=== PATIENT | female | born 1980 | race Caucasian/White ===

== ENCOUNTER → 2017-06-23 11:56 | Outpatient (CLI) | payer BC, SELFPAY ==
[2017-06-23 16:05] LABS: Free T3 3.4 pg/mL (2.18-3.98); T4 Free Direct 1.07 ng/dL (0.76-1.46); Thyroid Stim Hormone (TSH) 2.31 uIU/mL (0.358-3.74)
== END ==
PROVIDERS: Visit Provider Obstetrics & Gynecology
DX: O99.280 Endocrine, nutritional and metabolic diseases complicating pregnancy, unspecified trimester (principal); E03.9 Hypothyroidism, unspecified; Z3A.00 Weeks of gestation of pregnancy not specified
CPT/HCPCS: 36415; 84439; 84443; 84481

== ENCOUNTER → 2017-10-07 13:13 | Outpatient (CLI) | payer BC, SELFPAY ==
[2017-10-07 15:51] LABS: Hematocrit 34.4 % (37-47); Hemoglobin 11.4 g/dl (12.0-15.0); Mean Corp Hgb Conc 33.1 g/gl (32-36); Mean Corpuscular Volume 93.5 fL (81-99); Mean Platelet Vol. 9.9 fl (6.2-12.0); Platelet Count 371 K/mm3 (150-450); RBC Distribution Width CV 13.3 % (11.6-14.6); RBC Distribution Width SD 43.9 fl (35.1-43.9); Red Blood Count 3.68 M/mm3 (4.2-5.4); White Blood Count 7.3 K/mm3 (4.4-11.0)
[2017-10-07 15:52] LABS: Scan Indicated on CBC? Y/N NO
[2017-10-07 15:57] LABS: Glucose Challenge Gest 1H 50g 135 mg/dL (70-140)
== END ==
PROVIDERS: Visit Provider Obstetrics & Gynecology
DX: Z34.83 Encounter for supervision of other normal pregnancy, third trimester (principal)
CPT/HCPCS: 36415; 82950; 85027

== ENCOUNTER → 2017-11-17 13:33 | Outpatient (CLI) | payer BC, SELFPAY ==
[2017-11-17 17:05] LABS: Group B Strep DNA By PCR Negative (Negative); Internal Control PASS; Probe Check PASS; Specimen Processing Control PASS
== END ==
LOC: LABSPEC 13:34
PROVIDERS: Visit Provider Obstetrics & Gynecology
DX: Z36.85 Encounter for antenatal screening for Streptococcus B (principal)
CPT/HCPCS: 87081; 87653

== ENCOUNTER 2017-12-11 14:25 | Inpatient (IN) | payer BC, SELFPAY ==
[2017-12-11 14:45] VITALS: BMI 39.9
[2017-12-11] MEDS: Lactated Ringers 1,000 ML 100 ML IV (14:45)
[2017-12-11 15:18] LABS: Prothrombin Time (Protime)PT. 12.9 SECONDS (11.7-14.9)
[2017-12-11 15:19] LABS: Partial Thromboplast Time 23.5 Seconds (24.1-36.2)
[2017-12-11 15:20] LABS: Hematocrit 35.9 % (37-47); Mean Corp Hgb Conc 33.4 g/gl (32-36); Mean Corpuscular Hgb 30.8 pg (27.0-32.0); Mean Corpuscular Volume 92.1 fL (81-99); Mean Platelet Vol. 10.1 fl (6.2-12.0); Platelet Count 374 K/mm3 (150-450); RBC Distribution Width CV 13.8 % (11.6-14.6); RBC Distribution Width SD 45.7 fl (35.1-43.9); White Blood Count 8.4 K/mm3 (4.4-11.0)
[2017-12-11 15:21] LABS: AST(SGOT) 21 U/L (15-37); Alanine Aminotransfer ALT/SGPT 19 U/L (13-56); Creatinine, Serum 0.54 mg/dL (0.55-1.02); EST Glomerular Filtration Rate 133 mL/min (>60); Est Glom Filt Rate - Afr Amer 161 mL/min (>60); Estimated Creatinine Clearance 130.94 ml/min; Uric Acid 3.5 mg/dL (2.6-6.0)
[2017-12-11 15:22] LABS: Scan Indicated on CBC? Y/N NO
[2017-12-11] MEDS: Oxytocin 30 units/NS 500 ml 30 UNITS/500 ML IV.SOLN IV (15:57)
[2017-12-11 16:42] LABS: Protein, Urine (Random) 12.1 mg/dL (<11.9); Protein:Creat Ratio 126 mg/g CRE (0-200)
--- NOTE | 2017-12-11 18:44 | PCM.PN.BLA ---
Progress Note LABOR PROGRESS NOTE No complaints. Feels mild contractions on pitocin. AVSS GEN - NAD SVE - deferred FHR 120, moderate variability, + accelerations, no decelerations TOCO 2-3/10 min A/P: 37yo G1 @ 38 5/7wga with IUGR, abnormal Dopplers and h/o cHTN. -Cat I FHR -Continue COUNTER CUTTER and if negative will proceed with induction of labor - status overall reassuring at this time -CLD
[2017-12-11] MEDS: 0.9% Normal Saline 100 ML IV.SOLN. INTRA-UTER (18:49)
--- NOTE | 2017-12-11 20:45 | PCM.PN.BLA ---
Progress Note LABOR PROGRESS NOTE Comfortable, not feeling UCs. 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 Afeb Pitocin at 8 mIU/min EFM 120-130s intermittent tracing Category I UCs noted, irregular CX: unable to reach, then with pt sitting on hands 1 cm max. firm ant posterior. Unable to place herndon bulb by blind insertion with stylet assist. Speculum placed and sidewalls of vagina convergent. Able to visualize cervix, but unable to place herndon bulb A/P: 39 wk induction for chronic HTN. Elevated Dopplers, SGA. Very unfavorable cervix. Stop pitocin. start Cytotec induction. Possible pitocin / herndon bulb or AROM as able. Watch progress, tolerance of labor.
--- NOTE | 2017-12-11 20:50 | PN_ITS ---
Progress Note LABOR PROGRESS NOTE Comfortable, not feeling UCs. 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 Afeb Pitocin at 8 mIU/min EFM 120-130s intermittent tracing Category I UCs noted, irregular CX: unable to reach, then with pt sitting on hands 1 cm max. firm ant posterior. Unable to place herndon bulb by blind insertion with stylet assist. Speculum placed and sidewalls of vagina convergent. Able to visualize cervix, but unable to place herndon bulb A/P: 39 wk induction for chronic HTN. Elevated Dopplers, SGA. Very unfavorable cervix. Stop pitocin. start Cytotec induction. Possible pitocin / herndon bulb or AROM as able. Watch progress, tolerance of labor.
[2017-12-11] MEDS: Labetalol 200 MG Tablet PO (21:49)
[2017-12-11] MEDS: miSOPROStol 25 MCG TABLET PO (21:49)
[2017-12-12] VITALS (12 sets, daily range): BP systolic 99–138; BP diastolic 60–77; PULSE 88–102; RESP 16–18; TEMP 36.3–37.3; O2SAT 93–97
[2017-12-12] MEDS: miSOPROStol 25 MCG TABLET PO ×3 (02:10→10:00)
[2017-12-12] MEDS: Levothyroxine 50 MCG Tablet PO (06:09)
[2017-12-12] MEDS: Sertraline 100 MG Tablet PO (10:00)
[2017-12-12] MEDS: Labetalol 200 MG Tablet PO ×2 (10:00→21:44)
[2017-12-12] MEDS: Lactated Ringers 1,000 ML 50 ML IV (13:45)
--- NOTE | 2017-12-12 15:55 | PCM.PN.BLA ---
Progress Note LABOR PROGRESS NOTE Rachel is comfortable with her epidural. No complaints. Denies headache, vision changes. AVSS GEN - NAD, AAO x 3 TOCO - 0-1/10 min - difficulty tracing contractions FHR - 110 with minimal variability with decelerations - unclear if early vs. late SVE 4.5/80/-2 37yo G1 at 38 6/7wga - IOL for cHTN with IUGR, abnormal Dopplers and oligohydramnios, now in active labor, Cat II FHR -h/o cHTN - no si/sx of worsening or preeclampsia -Amniotomy performed with clear fluid and ISE, IUPC placed. Prolonged deceleration subsequently occured to 60s with recovery to baseline with moderate variability
[2017-12-12] MEDS: Oxytocin 30 units/NS 500 ml 30 UNITS/500 ML IV.SOLN 167 UNITS IV (16:55)
[2017-12-12] MEDS: Lactated Ringers 1,000 ML 100 ML IV (17:55)
--- NOTE | 2017-12-12 18:10 | PCM.PN.BLA ---
Progress Note SUMMARY OF EVENTS Called to bedside for heart rate decelerations. On my arrival, patient in hands and knees with oxygen mask on. TOCO 3/10 min wiht MVU 40 and baseline 110 with moderate variability and prolonged and variable decelerations with contractions. I reviewed with patient and her findings and my concern for cord compression at this time and recommended amnioinfusion. Patient was agreeable. Amnioinfusion 300mL NS infusion began. FHR remained Category II with lessor severity of decelerations with subsequent contractions. Reviewed with patient that if infant did not respond appropriately to resuscitative measures would proceed with section as anticipate lessor reserve to tolerate labor given evidence of uteroplacental insufficiency. Reviewed section, how performed and surgical risks including pain, bleeding or hemorrhage, infection including UTI/endometritis/abscess/sepsis, urinary or bowel injury, scarring, need for further surgery. Patient and reported understanding. Discussed anticipated labor course and I reviewed at that I this time I feel it appropriate to continue in labor, however, I cannot guarantee that my recommendations will change as the status may change quickly. I offered section at this time as an alternative. Patient elected to continue in labor. Will continue in labor and reassess in 20-30 minutes.
--- NOTE | 2017-12-12 18:43 | PLAC_PTH ---
PATIENT: IVETT BARAHONA LOC: [facility] U#:[id number] AGE/SX: 37/F ROOM: WP004 RE12/11/[address]: Dr. Natali Pendleton MD : 1980 BED: 1 DIS: 12/15/2017 SPEC #: [id number] RECD: 12/12/17 21:15 STATUS: ELANA PHILLIP #: [id number] RYLEE: 12/12/17 18:[address]: Natali Dominguez DEPT: SURGICAL PATHOLOGY RECD BY: Marni Simon ENTERED: 12/16/17 08:48 SP TYPE: PLACENTA OTHR DR: Betty Rodríguez DO Tissues: A - Placenta, NOS B - Fallopian tube Procedures: Surgery Specimen Level II Surgery Specimen Level V HEADER OPERATION: Primary section; tubal ligation PRE-OP DIAGNOSIS: IUGR, abnormal umbilical Doppler?s, infant facies concerning for trisomy 21 TISSUE SUBMITTED: A. Placenta, B. Fallopian tube, blue stitch in left tube MICROSCOPIC DIAGNOSIS A. Jimenez placenta (416 gm): Umbilical cord ? trivascular with no inflammation. Placental membranes ? minimal decidual chronic inflammation. Placental disc ? increased intraparenchymal fibrin plaques, Arelis-Felix change. B. Right and left fallopian tubes, bilateral partial salpingectomies: Complete cross-sections of fallopian tubes with no pathologic change. AM:vimal 12/17/17 MICROSCOPIC DESCRIPTION Slides are reviewed. GROSS DESCRIPTION A - SPECIMEN: PLACENTA / CLINICAL INFORMATION: A. Weight: 2.833 kg B. Gestational Age: 38 weeks C. Sex: Female PLACENTAL WEIGHT (POST FIXATION): 416 gm PLACENTAL DIMENSIONS: 22 x 17 x 3 cm PLACENTAL SHAPE: Bilobated PLACENTAL WEIGHT FOR GESTATIONAL AGE: Within 10-99th percentile MEMBRANES - Present A. Insertion: Marginal B. Site of rupture from edge: At edge of placental disc C. Color of membrane: Pickard-mucoidy D. Abnormalities: None UMBILICAL CORD - Present A. Color: Pickard-rider B. Insertion: Paracentral C. Length: 20 cm D. Diameter: 1 cm E. Number of vessels: Three F. Abnormalities: None PLACENTAL DISC - Present A. Color of surface: Pickard-rider B. surface abnormalities: None C. Maternal cotyledons: Intact with minimal tears D. Attached retro placental clot: No clot E. Cut surface: Dark red and spongy F. Lesions: None G. Separate clot: Absent SECTIONS SUBMITTED: 1. Membrane roll 2. Cord, maternal end 3. Cord, end 4. Placental disc, and maternal surfaces 5. Placental disc, and maternal surfaces 6. Placental disc, and maternal surfaces 7. Additional membranes B - Received is one container labeled with the patient's name and designated bilateral fallopian tubes, blue stitch in left tube. The specimen consists of two tubular pieces of pickard-pink soft tissue. The right tube measures 1.5 cm in length and 0.7 cm in diameter. The left tube with the stitch measures 2 cm in length and 0.6 cm in diameter and it is inked black. The entire specimen is submitted in one cassette. Both pieces will be sectioned at the time of embedding. / SJ:vimal 12/16/17 TC:3 CPT: 12995 x2, 13366
--- NOTE | 2017-12-12 18:47 | PCM.OPRPT ---
Problem List (1) Status post section Status: Acute (2) Encounter for tubal ligation Status: Acute Report of Operation Date of Procedure: 12/12/17 Pre-Operative Diagnosis: 38 6/7wga, Persistent Category II FHR, chronic hypertension Post-Operative Diagnosis: 38 6/7wga, Persistent Category II FHR, chronic hypertension Surgery/Procedure Performed:: Low transverse section Description of Surgical Findings:: Normal appearing uterus, ovaries. Filmy tubal adhesions. patient case manager: Swathi [place] Type of Anesthesia:: Epidural Anesthesiologist: Gus Larios Specimen's removed: 1. placenta 2. bilateral tubal segments Estimated Blood Loss (mL): 600 Fluids Replaced: 900 ml Description of Procedure: The patient was taken to the operating room and spinal analgesia was administered. She is placed in a dorsal supine position with left lateral tilt. The perineum and abdomen were prepped and draped in sterile fashion. And the spinal was found to be adequate. A Pfannenstiel incision was made using a scalpel and brought down to incise the subcutaneous tissue and rectus fascia at the midline. Subcutaneous tissue was bluntly dissected off the fascia laterally. The fascial incision was dissected laterally and cephalad using curved Duron scissors. The superior leaflet of the rectus fascia was grasped using Kierra clamps and bluntly dissected and sharply dissected from the underlying rectus muscle. In a similar fashion the inferior rectus fascia was dissected from the underlying muscle. The rectus muscles were bluntly at the midline. The peritoneum was identified and entered [sharply]. The bladder blade was placed into the abdomen and the vesicouterine peritoneal fold identified. The fold was incised and a bladder flap created. Bladder blade was then repositioned to the abdomen. A low transverse hysterotomy was made using the [Metzenbaum scissors] to level of the membranes. The hysterotomy was extended bluntly cephalad and caudad. The membranes were then ruptured revealing clear fluid. The head was elevated and brought to the level of the hysterotomy and the infant delivered revealing vigorous [female] infant. The cord was doubly clamped and cut after 30 seconds. The infant was passed to awaiting [nursery personnel]. The placenta was [expressed] from the uterus and appeared intact on inspection. The uterus was cleared of debris. The uterus was exteriorized. The hysterotomy was then repaired using 0 Vicryl running lock suture. At this time I discussed with Dr. Rutherford, the pediatric hospitalist, the the status of the infant. I was informed there was concern for down syndrome facies however the had transitioned well extra-utero. Per prior discussion Rene and I were under the agreement that we would proceed with tubal ligation if the infant was doing well. I reviewed with Rene our concern for possibility of trisomy 21 and that definitive testing would be required. She indicated that this did not change her desire for sterilization and she again requested tubal ligation. Then proceeded with sterilization. Attention was turned to the right adnexa and the ampullary right tube was grasped using a Marc clamp. An avascular segment of the mesosalpinx was incised using the Bovie and a defect created. The proximal distal segments of this portion of the tube were tied using 2 oh plain gut suture. Approximately 2 cm intervening segment of tube was excised. There is good tubal hemostasis. In similar fashion a [place] tubal ligation was also performed on the left side. Few filmy tubal adhesions from the right adnexa to the omentum were serially lysed. The uterus and adnexa were returned to the abdomen. The hysterotomy repair was again inspected and given a small amount of bleeding a second imbricating layer of 0 Vicryl was also placed hemostasis hemostasis. The bladder blade was removed. The anterior cul-de-sac was cleared of debris. The peritoneum and rectus muscles were reapproximated using 2-0 Vicryl running suture. The rectus fascia was closed using 0 Vicryl running suture. The subcutaneous tissue was sponge irrigated and small capillary bleeding controlled using the Bovie device. The subcutaneous tissue was reapproximated using 2-0 Vicryl. The skin was closed using 4-0 Monocryl subcuticularly the OBJECT ORIENTED DEVELOPER under my supervision. Mepilex occlusive dressing was placed over the incision. The fundus was firm. The patient was then transferred to the recovery room without complication. Sponge, instrument, and needle counts were correct ?2. Infant weight 2833g, Apgars 8 and 9 - Admit VTE Documentation VTE Present on Admission: No VTE Mechan Device Prophylaxis: SCD's VTE Pharm Prophylaxis ordered?: No
[2017-12-12] MEDS: Ketorolac 30 MG/ML Syringe IV (23:51)
[2017-12-13] VITALS (13 sets, daily range): BP systolic 104–132; BP diastolic 52–80; PULSE 84–97; RESP 16–18; TEMP 36.3–37.2; O2SAT 95–97
--- NOTE | 2017-12-13 | NURSING ---
epidural catheter removed. blue tip intact. pt tolerated well
[2017-12-13] MEDS: Lactated Ringers 1,000 ML 100 ML IV (04:00)
[2017-12-13] MEDS: Levothyroxine 50 MCG Tablet PO (06:17)
[2017-12-13] MEDS: Ketorolac 30 MG/ML Syringe IV ×3 (06:17→18:54)
[2017-12-13 06:53] LABS: Hematocrit 35.1 % (37-47); Hemoglobin 11.7 g/dl (12.0-15.0); Mean Corp Hgb Conc 33.3 g/gl (32-36); Mean Corpuscular Hgb 31.2 pg (27.0-32.0); Mean Corpuscular Volume 93.6 fL (81-99); Mean Platelet Vol. 10.1 fl (6.2-12.0); Platelet Count 331 K/mm3 (150-450); RBC Distribution Width CV 13.7 % (11.6-14.6); RBC Distribution Width SD 45.1 fl (35.1-43.9); Red Blood Count 3.75 M/mm3 (4.2-5.4); White Blood Count 11.5 K/mm3 (4.4-11.0)
[2017-12-13 06:54] LABS: Scan Indicated on CBC? Y/N NO
--- NOTE | 2017-12-13 08:43 | PCM.PN.OB ---
Patient Problems: Active and Suspected Problems Status post section (Acute) Encounter for tubal ligation (Acute) Subjective: Rachel is sore this morning. She tolerates a regular diet without nausea or vomiting. Denies chest pain or shortness of breath. Not yet out of bed. No flatus yet. continues nursing well, she was admitted to special care nursery. Objective: AVSS - Physical Exam General: Alert, Oriented x3, Cooperative HEENT: Atraumatic, Normocephalic Lungs: Clear to auscultation, Normal air movement Cardiovascular: Regular rate, Regular Rhythm, Normal S1, Normal S2 Abdomen: Soft, Non Tender, Non-Distended, Bowel Sounds Not Present, - - Fundus firm and nontender, lochia scant, incisional dressing c/d/i Extremities: No Calf Tenderness, - - trace LE edema bilaterally Neurological: Neuro grossly intact Psych/Mental Status: Normal Affect, Appropriate, Alert and oriented to time, place, person, mood and affect Vital Signs Temp Pulse Resp BP Pulse Ox 97.9 F 90 16 124/72 H 97 12/13/17 05:40 12/13/17 05:40 12/13/17 05:40 12/13/17 05:40 12/13/17 05:40 Oxygen Delivery Method Room Air Weight: 112.3 kg Body Mass Index (BMI) 39.9 Intake and Output for Last 24 Hours 12/11/17 12/12/17 12/13/17 23:59 23:59 23:59 Intake Total 350 / 350 1750 / 1750 392 / 392 Output Total 250 / 250 600 / 600 Balance 350 / 350 1500 / 1500 -208 / -208 Laboratory Tests Past 24 Hrs 12/13/17 06:45 WBC 11.5 H RBC 3.75 L Hgb 11.7 L Hct 35.1 L MCV 93.6 MCH 31.2 MCHC 33.3 RDW 13.7 RDW Differential 45.1 H Plt Count 331 MPV 10.1 Medical Necessity - Tobacco Use Smoking Status: Current every day smoker Assessment/Plan All Active Problems Status post section (Acute) Encounter for tubal ligation (Acute) 37yo POD#1 s/p PLTCS, BTL -Infant with suspected T21 admitted to special care nursery -cHTN - continue Labetalol -hypothyroidism - continue Synthroid 50mcg daily -OOB today -A positive, RPR nr HIV nr, HBsAg neg, HCV Ab neg, Rubella immune -Routine post-op care
[2017-12-13] MEDS: Sertraline 100 MG Tablet PO (10:13)
[2017-12-13] MEDS: Senna/Docusate Sodium 1 Tablet PO (10:13)
[2017-12-13] MEDS: Labetalol 200 MG Tablet PO ×2 (10:13→21:56)
[2017-12-13] MEDS: 0.9% Saline Lock 10 ML Syringe IV (12:21)
--- NOTE | 2017-12-13 17:36 | NURSING ---
1000 Ambulates to the bathroom with assistance. Linh care completed per patient. Towelettes provided for sponge bath completed with assistance. Oral care done per patient at sink. Ambulates to chair at bedside. Juaquin well. Encouraged to increase fluid intake. States she feels good moving around and wants to sit in the chair for a while. and baby at bedside.
--- NOTE | 2017-12-13 17:39 | NURSING ---
1630 Carbajal discontinued, jay jay well. Emptied for 1800ml clear yellow urine. Pumps breast for 10 minutes. several drops of colostrum noted and swabbed and labeled per fob.
[2017-12-14] MEDS: Ketorolac 30 MG/ML Syringe IV ×4 (00:13→18:28)
[2017-12-14] MEDS: 0.9% Saline Lock 10 ML Syringe IV ×3 (00:14→18:29)
[2017-12-14 02:29] VITALS: BP 138/67; PULSE 92; RESP 18; TEMP 36.6; O2SAT 97
[2017-12-14] MEDS: Levothyroxine 50 MCG Tablet PO (06:53)
[2017-12-14] MEDS: oxyCODONE 5 MG Tablet PO (07:54)
[2017-12-14] MEDS: Senna/Docusate Sodium 1 Tablet PO (07:55)
[2017-12-14 10:00] VITALS: BP 119/70; PULSE 78; RESP 18; TEMP 36.4
[2017-12-14] MEDS: Labetalol 200 MG Tablet PO ×2 (10:43→21:58)
[2017-12-14] MEDS: Sertraline 100 MG Tablet PO (10:43)
--- NOTE | 2017-12-14 11:11 | PCM.PN.OB ---
Patient Problems: Active and Suspected Problems Status post section (Acute) Encounter for tubal ligation (Acute) Subjective: No complaints this morning. Objective: AVSS - Physical Exam General: Alert, Oriented x3, Cooperative, No apparent distress HEENT: Atraumatic, Normocephalic Lungs: Clear to auscultation, Normal air movement Cardiovascular: Regular rate, Regular Rhythm, Normal S1, Normal S2 Abdomen: Bowel Sounds Present, Soft, Non Tender, Non-Distended, - - Fundus firm and nontender at umbilicus, incisional dressing c/d/i Extremities: No edema, No Calf Tenderness Neurological: Neuro grossly intact Psych/Mental Status: Normal Affect, Appropriate, Alert and oriented to time, place, person, mood and affect Vital Signs Temp Pulse Resp BP Pulse Ox 97.9 F 92 18 138/67 H 97 12/14/17 02:29 12/14/17 02:29 12/14/17 02:29 12/14/17 02:12/14/17 02:29 Oxygen Delivery Method Room Air Weight: 112.3 kg Body Mass Index (BMI) 39.9 Intake and Output for Last 24 Hours 12/12/17 12/13/17 12/14/17 23:59 23:59 23:59 Intake Total 1750 / 1750 392 / 392 Output Total 250 / 250 850 / 850 300 / 300 Balance 1500 / 1500 -458 / -458 -300 / -300 Medical Necessity - Tobacco Use Smoking Status: Current every day smoker Assessment/Plan All Active Problems Status post section (Acute) Encounter for tubal ligation (Acute) 37yo POD#2 s/p PLTCS, BTL -Infant with suspected T21 admitted to special care nursery -cHTN - continue Labetalol -hypothyroidism - continue Synthroid 50mcg daily -A positive, Rubella immune -Routine post-op care
[2017-12-14 18:00] VITALS: BP 134/84; PULSE 83; RESP 18; TEMP 36.6
[2017-12-14 19:45] VITALS: BP 147/84; PULSE 80; RESP 18; TEMP 36.6; O2SAT 99
[2017-12-14] MEDS: Acetaminophen 325 MG Tablet PO (22:02)
[2017-12-15] MEDS: oxyCODONE 5 MG Tablet PO ×2 (00:18→05:53)
[2017-12-15 01:00] VITALS: BP 145/78; PULSE 80; RESP 18; TEMP 36.6
[2017-12-15] MEDS: Ibuprofen 600 MG Tablet PO (05:52)
[2017-12-15] MEDS: Levothyroxine 50 MCG Tablet PO (06:00)
--- NOTE | 2017-12-15 08:49 | PCM.PN.OB ---
Patient Problems: Active and Suspected Problems Status post section (Acute) Encounter for tubal ligation (Acute) Subjective: No issues overnight. Rachel feels she is coping well with daughter's potential diagnosis, but notes emotional ups and downs and some tearfulness. Denies feeling depressed. Denies headache, vision changes, shortness of breath or chest pain. Lochia is light. Pain is controlled. Passing flatus. No bowel movement yet. Objective: AVSS - Physical Exam General: Alert, Oriented x3, Cooperative, No apparent distress HEENT: Atraumatic, Normocephalic Lungs: Clear to auscultation, Normal air movement Cardiovascular: Regular rate, Regular Rhythm, Normal S1, Normal S2 Abdomen: Bowel Sounds Present, Soft, Non Tender, Non-Distended, - - Fundus firm and nontender, incisional dressing c/d/i Extremities: No edema, No Calf Tenderness Neurological: Neuro grossly intact Psych/Mental Status: Normal Affect, Appropriate, Alert and oriented to time, place, person, mood and affect Vital Signs Temp Pulse Resp BP Pulse Ox 98 F 80 18 145/78 H 99 12/15/17 01:00 12/15/17 01:00 12/15/17 01:00 12/15/17 01:00 12/14/17 19:45 Oxygen Delivery Method Room Air Weight: 112.3 kg Body Mass Index (BMI) 39.9 Intake and Output for Last 24 Hours 12/13/17 12/14/17 12/15/17 23:59 23:59 23:59 Intake Total 392 / 392 Output Total 850 / 850 300 / 300 Balance -458 / -458 -300 / -300 Medical Necessity - Tobacco Use Smoking Status: Current every day smoker Assessment/Plan All Active Problems Status post section (Acute) Encounter for tubal ligation (Acute) 37yo POD#3 s/p PLTCS, BTL -Infant with suspected T21 admitted to special care nursery -cHTN - continue Labetalol -hypothyroidism - continue Synthroid 50mcg daily -A positive, Rubella immune -Routine post-op care -d/c home today -f/u in office in 1-2 weeks
--- NOTE | 2017-12-15 09:03 | PCM.DCCSEC ---
Discharge Diet: No Restrictions Discharge Activity: Return to Normal Activity, May not drive while taking narcotic pain medications., May Shower, - - No tub bath May resume sexual activity in: 6 weeks Lifting Restrictions: 10 lb Call your doctor if your incision/area has: Continuous Slow Oozing, Sudden Increased Bleeding, Increased Pain/ Swelling, Increased Redness, Foul Smelling Discharge Call your doctor if you observe: Fever of 101 or Higher, Inability to urinate, Inability to have a bowel movement, Using more than one pad per hour, Shortness of breath, Chest pain, Calf discomfort, Uncontrolled pain Suture Line Care: Avoid Pulling/Pushing Remove Dressing in (days):: 3 Cleanse incision/area with: Soap & Water Additional Instructions: If you experience any of the following, contact your healthcare provider. Bleeding that soaks a pad every hour for 2 hours Fever 100.4 or higher Unrelieved incision or abdominal pain Swelling, redness, discharge or bleeding from your incision or episiotomy site Your incision begins to separate Problems urinating (including inability to urinate or burning while urinating). Visual changes Severe headache Flu-like symptoms Pain or redness in one of both of your breasts Pain, warmth, tenderness or swelling in your legs, especially the calf area Frequent nausea and vomiting Symptoms of depression or anxiety If you experience any of the following, call 911 or go to the nearest Emergency Room. Chest pain Problems breathing Seizure activity Partial or complete paralysis of a body part, slurred speech, weakness or drooping of the face, or a sudden inability to walk or hold your balance Allergies/Adverse Reactions: Allergies No Known Allergies Allergy (Verified 12/11/17 15:19) Medications to take at Discharge Cholecalciferol (Vitamin D3) [Vitamin D3] 5,000 unit PO DAILY 12/11/17 Levothyroxine [Synthroid] 50 mcg PO DAILY 12/11/17 [place]-3 Fatty Acids/Fish Oil [Fish Oil 1,000 mg Capsule] 1 each PO DAILY 12/11/17 Vit No.130/Iron/FA [ Tablet] 1 each PO DAILY 12/11/17 Sertraline HCl [Zoloft] 100 mg PO DAILY 12/11/17 Ibuprofen 600 mg PO TID PRN #30 tab 12/15/17 Labetalol [Trandate (Beta [place])] 200 mg PO BID #60 tab 12/15/17 Oxycodone [Oxyir] 5 - 10 mg PO Q6H PRN 4 Days #32 tablet 12/15/17 The following prescriptions were given: Labetalol [Trandate (Beta [place])] 200 mg PO BID #60 tab Oxycodone [Oxyir] 5 - 10 mg PO Q6H PRN 4 Days #32 tablet PRN Reason: Mod-Severe Pain (-01/21) Ibuprofen 600 mg PO TID PRN #30 tab PRN Reason: Pain Follow-Up: Call to make an appointment with your doctor for an incision check in 1-2 weeks. You will also need a 6 week post- follow up appointment. Test results from this visit will be discussed in further detail at your follow-up appointment, if applicable. Please Follow Up With: Natali Estrella MD When: 1-2 weeks Primary Care Physician: Betty Rodríguez MD [Primary Care Provider] -
[2017-12-15] MEDS: Sertraline 100 MG Tablet PO (09:20)
[2017-12-15] MEDS: Labetalol 200 MG Tablet PO (09:20)
[2017-12-15] MEDS: Acetaminophen 325 MG Tablet PO (09:20)
[2017-12-15] MEDS: Senna/Docusate Sodium 1 Tablet PO (09:30)
[2017-12-15 12:00] VITALS: BP 110/57; PULSE 84; TEMP 36.6
--- NOTE | 2017-12-16 13:30 | CASEMGMT ---
Social Work Labor and Delivery Unit Met with patient/mother of baby (MOB) this date, 12-16-17, for social work assessment. MOB's baby, Cristóbal was transferred into the [facility] due to hypoglycemia, low temperatures, and observation of infection. Educated MOB that this engineering writer is the social welfare administrator assigned to [facility] Labor and delivery unit, as well as to the [facility] for continuity of care of families while in the [facility]. Let MOB know that this engineering writer seeing MOB for the [facility] side, but also from a [facility] perspective, just to make sure that MOB has information about depression with MOB's history of anxiety and depression. Brief Summary: MOB a advanced maternal age, first time mother, to father of baby (FOB) Alphonso Morris for 9 years now, and baby born this admission was the first for MOB and FOB together. No reports of any concerns related to safety at home or with home situation. Both MOB and FOB are gainfully employed and MOB reports to have all needed supplies for baby, as well as a large family that MOB can tap into for support/help with baby if needed. No issues with transportation and no agency involvement, but MOB does agree to have a Help Me Grow referral when the baby is discharged. No reported issues with learning or comprehension issues for MOB. Behavioral Health Issues: Mental Health History: MOB reports history of depression and anxiety, with anxiety being more prominent for MOB. MOB denies any history of suicidal ideation, plans, intent past or present; denies past attempts. MOB denies history of counseling. MOB reports was treated with Paxil and this medication helped, but stopped cold turkey during this , due to . MOB was then transitioned to Zoloft. MOB reports it took some time to get the Zoloft dosage adjusted to level that was helpful to MOB. MOB reports currently on the Zoloft and intends remain on this in the period. MOB does have history of prescription for Buspar, as needed, for anxiety. Note, MOB with an [place] Depression scale prenatally on 05-26-17 with a score of 18. Today on 12-16-17, MOB scored 10, so reduction in symptoms noted though symptoms still present. Substance Use History: MOB denies any history of alcohol dependence issues, sometimes drinks socially but not at all during . MOB denies any illicit drug use history. MOB was smoking tobacco, about a pack a day at the beginning of and by the end cut down to 2 cigarettes a day. Drug Screens: Maternal drug screen negative on 04-28-17. Family/Social Stressors: MOB with unplanned , though reports was accepted and wanted. MOB reports just never thought could get due to not becoming after years of not using control. Record indicated that MOB did experience some situational stress in the spring, related to some issues that MOB and FOB were having with FOB's exwife. MOB also stopped antidepressant cold turkey, and went to a new medicine, which also may have exacerbated MOB's depressive and anxiety symptoms. MOB also cut down on tobacco smoking. MOB having some stress related to possible Downs Syndrome diagnosis for baby girl Cristóbal Morris, reports this was a shock to MOB, that MOB did not really realize this could be an issue. MOB reports that she and FOB have differing opinions about talking with support systems regarding potential diagnoses: FOB wants to wait until lab results are back, but MOB wants to share with others for support. MOB reports did talk to her father and stepmother, so has talked to a couple of people who have been supportive. Assessment Met with MOB in courtesy room on the labor and delivery unit. MOB pleasant, cooperative, and friendly. MOB non defensive and spontaneous at appropriate times. MOB allow self to cry when discussing how MOB is doing right now, coping as MOB adjust to NICU stay and potential Downs Syndrome Diagnosis. MOB does report to love Cristóbal, to feel a connection, that it is mostly the unknown and waiting for results that MOB is having the hardest time with. MOB reports FOB is doing okay, has similar thoughts and worries to MOB, but that FOB is doing okay. MOB does report to use deep breathing and likes to go outside for fresh air as coping when feeling stressed. MOB receptive to having information on depression and anxiety for future. MOB plans to stay on antidepressants in the period, and reports belief that medicine is helpful to MOB. Talked with MOB about various resources in [facility] where the family lives. MOB accepted resources provided today. Plan: MOB has already been discharged home as of 12-15-17. MOB has now been given resources for depression, mental health follow up options, and general resources for [facility]. MOB reports understanding that while MOB is no longer a [facility] patient, social work will continue to follow from the [facility] side. No other services from [facility] social perspective. Family will be followed by the [facility]. -AIRAM Quevedo, COSMETIC SALES ADVISOR
[2017-12-18 10:26] LABS: Pathology Specimen OB SEE PATHOLOGY REPORT
[2017-12-18 10:26] LABS: Pathology Specimen OB SEE PATHOLOGY REPORT
--- NOTE | 2017-12-23 09:52 | PCM.DC.SUM ---
Discharge Date and Diagnosis Date of Admission: 12/11/17 Date of Discharge: 12/15/17 Hospital Course and Treatment Operations: - - Cearean section with bilateral tubal ligation Summary of Care Provided: The patient is a 37 year old F h/o well controlled chronic hypertension admitted at 38 5/7 weeks for induction of labor with IUGR with abnormal umbilical Dopplers. She underwent an low transverse section on hospital day #2 for non-reassuring heart rate tracing with bilateral tubal ligation. Her post-operative course was unremarkable and she was discharged to home on post-operative day #3. Discharge Diet: No Restrictions Discharge Activity: Return to Normal Activity, May not drive while taking narcotic pain medications., May Shower, - - No tub bath May resume sexual activity in: 6 weeks Call your doctor if your incision/area has: Continuous Slow Oozing, Sudden Increased Bleeding, Increased Pain/ Swelling, Increased Redness, Foul Smelling Discharge Call your doctor if you observe: Fever of 101 or Higher, Inability to urinate, Inability to have a bowel movement, Using more than one pad per hour, Shortness of breath, Chest pain, Calf discomfort, Uncontrolled pain Suture Line Care: Avoid Pulling/Pushing Remove Dressing in (days):: 3 Cleanse incision/area with: Soap & Water Home Medications: Medications to take at Discharge Cholecalciferol (Vitamin D3) [Vitamin D3] 5,000 unit PO DAILY 12/11/17 Levothyroxine [Synthroid] 50 mcg PO DAILY 12/11/17 [place]-3 Fatty Acids/Fish Oil [Fish Oil 1,000 mg Capsule] 1 each PO DAILY 12/11/17 Vit No.130/Iron/FA [ Tablet] 1 each PO DAILY 12/11/17 Sertraline HCl [Zoloft] 100 mg PO DAILY 12/11/17 Ibuprofen 600 mg PO TID PRN #30 tab 12/15/17 Labetalol [Trandate (Beta [place])] 200 mg PO BID #60 tab 12/15/17 Oxycodone [Oxyir] 5 - 10 mg PO Q6H PRN 4 Days #32 tablet 12/15/17 Following Prescrptions Were Given to Patient: Labetalol [Trandate (Beta [place])] 200 mg PO BID #60 tab Oxycodone [Oxyir] 5 - 10 mg PO Q6H PRN 4 Days #32 tablet PRN Reason: Mod-Severe Pain (4-01/21) Ibuprofen 600 mg PO TID PRN #30 tab PRN Reason: Pain Primary Care Physician: Betty Rodríguez MD [Primary Care Provider] - Please Follow Up With: Natali Estrella MD When: 1-2 weeks Medical Necessity - Tobacco Use Smoking Status: Current every day smoker Meaningful Use Info Meaningful Use Diagnoses (Choose all that apply): None applicable
== END 2017-12-15 16:00 | disposition home or self-care (01) | DRG 765 ==
PROVIDERS: Admitting Provider Obstetrics & Gynecology; Family Provider Family Medicine; PCP Family Medicine; Visit Provider Obstetrics & Gynecology
DX: O99.334 Smoking (tobacco) complicating childbirth (principal); O41.03X0 Oligohydramnios, third trimester, not applicable or unspecified; O99.344 Other mental disorders complicating childbirth; O36.5930 Maternal care for other known or suspected poor fetal growth, third trimester, not applicable or unspecified; O76 Abnormality in fetal heart rate and rhythm complicating labor and delivery; O10.92 Unspecified pre-existing hypertension complicating childbirth; O99.284 Endocrine, nutritional and metabolic diseases complicating childbirth; E03.9 Hypothyroidism, unspecified; F41.8 Other specified anxiety disorders; Z3A.38 38 weeks gestation of pregnancy; Z37.0 Single live birth; Z79.82 Long term (current) use of aspirin; Z79.899 Other long term (current) drug therapy
CPT/HCPCS: 59020; 59025; 59050; 82565; 82570; 84156; 84450; 84460; 84550; 85027; 85610; 85730; 86850; 86900; 88302; 88307; 99218; J7030; J7050; J7120; A4216; G0378; J2405; J3490

== ENCOUNTER → 2018-06-08 17:00 | Outpatient (CLI) | payer BC, SELFPAY ==
[2018-06-14 10:18] LABS: HPV APTIMA, High Risk Negative (Negative)
== END ==
PROVIDERS: Visit Provider Obstetrics & Gynecology
DX: Z12.4 Encounter for screening for malignant neoplasm of cervix (principal)
CPT/HCPCS: 87624; 88175; G0145

== ENCOUNTER → 2018-07-02 09:23 | Outpatient (CLI) | payer BC, SELFPAY ==
[2018-07-02 11:08] LABS: Hemoglobin A1c 5.2 % (4.2-6.3)
[2018-07-02 11:12] LABS: Progesterone Level 0.38 ng/mL (See Comment); Vitamin D,25 Hydroxy 23.8 ng/mL (29.95-100.01)
[2018-07-02 11:14] LABS: Estradiol 42.2 pg/mL; Follicle Stimulating Hormone 5.9 mIU/mL; Free T3 2.8 pg/mL (2.18-3.98); Prolactin 12.6 ng/mL; T4 Free Direct 0.88 ng/dL (0.76-1.46); Thyroid Stim Hormone (TSH) 2.04 uIU/mL (0.358-3.74)
[2018-07-03 03:06] LABS: DHEA Sulfate 217.2 ug/dL (57.3-279.2)
[2018-07-03 11:23] LABS: Sex Hormone-binding Globulin 76.1 nmol/L (24.6-122.0)
[2018-07-08 11:52] LABS: 17-Hydroxyprogesterone 38 ng/dL (.)
== END ==
LOC: WOBLAB 09:24
PROVIDERS: Visit Provider Obstetrics & Gynecology
DX: L68.0 Hirsutism (principal); N92.6 Irregular menstruation, unspecified
CPT/HCPCS: 36415; 82306; 82533; 82627; 82670; 83001; 83036; 83498; 83525; 84144; 84146; 84270; 84403; 84439; 84443; 84481; 82626

== ENCOUNTER → 2018-07-20 | Outpatient (CLI) | payer BC, SELFPAY ==
[2018-07-20 16:13] LABS: Progesterone Level 7.07 ng/mL (See Comment)
== END | disposition home or self-care (01) ==
LOC: WOBLAB 13:27
PROVIDERS: Visit Provider Obstetrics & Gynecology
DX: N92.6 Irregular menstruation, unspecified (principal)
CPT/HCPCS: 36415; 84144